=== PATIENT | female | born 1965 | race Caucasian/White ===

== ENCOUNTER 2019-10-20 01:25 | Emergency (ER) | payer MEDICAID ==
[~2019-10-20] VITALS: Ht 162.6 cm; Wt 62.6 kg
[2019-10-20] MEDS ORDERED: HYDROCODONE/APAP 5-325MG TABLET PO ONE (02:15)
[2019-10-20] MEDS ORDERED: HYDROCODONE/APAP 5-325MG TABLET ONE (02:17)
--- NOTE | 2019-10-20 03:13 | NUR ---
PT NAD RA
--- NOTE | 2019-10-20 03:13 | NUR ---
PT BACK FROM CT VIA WHEELCHAIR ACCOMPANIED BY PAPER REWINDER
--- NOTE | 2019-10-20 03:50 | NUR ---
Patient discharged to home in stable conditon. Written and verbal after care instructions given. Patient verbalizes understanding of instructions. AMBULATORY W/ ANTALGIC GAIT ALL BELONGINGS W/ PT SON WILL DRIVE HOME
[2019-10-20 03:52] VITALS: BP 110/70
== END 2019-10-20 03:52 | disposition home or self-care (01) ==
LOC: ER 01:31
DX: S13.4XXA Sprain of ligaments of cervical spine, initial encounter (principal); S33.5XXA Sprain of ligaments of lumbar spine, initial encounter; E78.5 Hyperlipidemia, unspecified; V43.52XA Car driver injured in collision with other type car in traffic accident, initial encounter; Y93.89 Activity, other specified; Y92.89 Other specified places as the place of occurrence of the external cause; Y99.8 Other external cause status
CPT/HCPCS: 72050; 72125; 73130; A4663

== ENCOUNTER 2024-12-11 22:10 | Emergency (ER) | payer MEDICAID ==
[~2024-12-11] VITALS: Ht 154.9 cm; Wt 61.7 kg
[2024-12-11] MEDS: IV NS 1000 ML 1,000 ML IV ONE (23:04)
[2024-12-11 23:08] LABS: BASOPHILS % (AUTO) 0.6 % (0.0-2.0); HEMATOCRIT 31.5 % (31.2-41.9); HEMOGLOBIN 10.9 g/dL (10.9-14.3); LYMPHOCYTES # (AUTO) 1.1 K/uL (0.8-4.8); LYMPHOCYTES % (AUTO) 30.2 % (20.5-51.5); MEAN CORPUSCULAR HEMOGLOBIN 30.4 uug (24.7-32.8); MEAN CORPUSCULAR HGB CONC 35 g/dL (32.3-35.6); MEAN CORPUSCULAR VOLUME 87.9 fL (75.5-95.3); MONOCYTES # (AUTO) 0.6 K/uL (0.1-1.30); MONOCYTES % (AUTO) 15.5 % (0.0-11.0); NEUTROPHILS % (AUTO) 53.7 % (38.5-71.5); PLATELET COUNT (AUTO) 259 K/uL (179-408); RED BLOOD CELL COUNT(AUTO) 3.58 MIL/uL (3.63-4.92); RED CELL DISTRIBUTION WIDTH 14.1 % (12.3-17.7); WHITE BLOOD COUNT (AUTO) 3.7 K/uL (3.8-11.8)
[2024-12-11 23:09] LABS: DIFFERENTIAL COMMENT 1
[2024-12-11 23:15] LABS: CALCIUM 8.2 mg/dL (8.5-10.1); CREATININE 0.5 mg/dL (0.6-1.3); POTASSIUM 3.6 mmol/L (3.5-5.1)
[2024-12-11 23:27] LABS: ALBUMIN 3.2 g/dL (3.4-5.0); BILIRUBIN,TOTAL 0.1 mg/dL (0.2-1.0); TOTAL PROTEIN, SERUM 6.8 g/dL (6.4-8.2)
[2024-12-11 23:43] LABS: BAND % (MANUAL) 7 % (0-10); LYMPHOCYTES % (MANUAL) 32 % (20-40); MONOCYTES % (MANUAL) 10 % (2-10); NEUTROPHILS % (MANUAL) 51 % (42-75); PLATELET ESTIMATE ADEQUATE
[2024-12-12] MEDS ORDERED: ONDANSETRON 4 MG/2 ML VIAL ONE (00:11)
[2024-12-12] MEDS: ONDANSETRON 4 MG/2 ML VIAL IV ONE (00:14)
[2024-12-12] MEDS ORDERED: SWABABLE VALVE TRANSFER SET EA MC ONE (00:22)
[2024-12-12] MEDS ORDERED: IOHEXOL 350 100 ML INFUS..BTL ONE (00:22)
[2024-12-12] MEDS ORDERED: IV NORMAL SALINE 250 ML IV ONE (00:22)
[2024-12-12 00:24] LABS: ABG BASE EXCESS -1.9 mmol/L (-2.0-3.0); ABG HCO3 22.6 mmol/L (21.0-28.0); ABG PCO2 37.5 mmHg (32.0-45.0); ABG PH 7.398 (7.350-7.450); ABG PO2 61.7 mmHg (83.0-108.0); ABG SITE RIGHT RADIAL; ABG TOTAL HEMOGLOBIN 11.3 G/dL (12.0-16.0); AaDO2 91.8 mmHg; COHb 0.1 % (0.5-1.5); MetHb 0.3 % (0.0-1.5); O2Hb 91.5 % (94.0-98.0)
[2024-12-12 00:25] LABS: ETHANOL < 3 MG/DL (0-10)
[2024-12-12 00:47] LABS: *BILIRUBIN,URIN NEGATIVE (NEGATIVE); *BLOOD, URINE 1+ (NEGATIVE); *CLARITY,URINE CLEAR (CLEAR); *COLOR,URINE YELLOW (YELLOW); *KETONES,URINE NEGATIVE (NEGATIVE); *PROTEIN,URINE NEGATIVE (NEGATIVE); *UROBILINOGEN,URINE 0.2 E.U./dl (NORMAL); LEUKOCYTE ESTERASE ,URINE 1+ (NEGATIVE); NITRITE, URINE NEGATIVE (NEGATIVE); PH,URINE 6.5 (5.0-8.0); UGLUCOSE NEGATIVE (NEGATIVE)
[2024-12-12 00:54] LABS: BACTERIA,URINE MODERATE /HPF (NONE SEEN); SQUAMOUS EPITHELIAL CELL,UR FEW /HPF (NONE SEEN)
[2024-12-12] MEDS ORDERED: AZIT250T13 PO (01:39)
[2024-12-12] MEDS ORDERED: CEFTRIAXONE /D5W 50ML IVPB **ER PYXIS IV ONE (01:47)
[2024-12-12] MEDS: CEFTRIAXONE 1 G in IV DEXTROSE 5% 50 ML IV ONE (01:55)
[2024-12-12] MEDS ORDERED: PRED50TA PO (02:53)
[2024-12-12] MEDS ORDERED: ALBU18HF2 INH (02:53)
[2024-12-12] MEDS ORDERED: BENZ-13 PO (02:53)
[2024-12-12] MEDS ORDERED: LEVO500T90 PO (02:53)
[2024-12-12 03:21] VITALS: BP 106/65; O2SAT 90
== END 2024-12-12 03:44 | disposition left against medical advice (07) ==
LOC: ER 22:10
DX: J21.9 Acute bronchiolitis, unspecified (principal); N39.0 Urinary tract infection, site not specified; R09.02 Hypoxemia; R11.2 Nausea with vomiting, unspecified; R42 Dizziness and giddiness; R55 Syncope and collapse; E78.5 Hyperlipidemia, unspecified; Z79.52 Long term (current) use of systemic steroids; Z20.822 Contact with and (suspected) exposure to COVID-19
CPT/HCPCS: 87804 ×2; 80053; 83880; 85007; 85025; 87426; 87040; 84484; 36415 ×2; 71045; 99285; 96361; 83605; 81001; 87086; 70450; 71275; 74176; 96365; 96375; 80320; 36600; J7040; J0696; J2405; Q9967; A4606; A4663; G0480